=== PATIENT | female | born 1995 | race Two or more races ===

== ENCOUNTER 2018-06-09 19:57 | Emergency (ER) | payer OTHER ==
[~2018-06-09] VITALS: Ht 180.3 cm; Wt 56.7 kg
--- NOTE | 2018-06-09 20:21 | Emergency Room Report ---
History of Present Illness General Chief Complaint: Lower Back Pain or Injury Source: Patient Present Illness HPI Patient slipped and fell onto her back a week ago on a wet floor. She still is having back pain. She is sent here for evaluation. Her last period was a week ago and normal for her. She's not been taking medication. She's having difficulty walking and has some numbness in her knees. Pain rated 9/10, aching , not radiate down legs. No incontinence, fevers, blood thinners or oncologic problems. She denies prior back injuries of pain. No dysuria. No abdominal pain. Allergies: Coded Allergies: No Known Allergies (Unverified , 06/09/18) Patient History Past Medical History: see triage record Social History: Denies: smoking Social History Narrative food prep Last Menstrual Period: 06/01/2018 Now: No : 0 Para: 0 Reviewed Nursing Documentation: PMH: Agreed; PSxH: Agreed Nursing Documentation-PMH Past Medical History: No Stated History Review of Systems All Other Systems: negative except mentioned in HPI Physical Exam Vital Signs Date Time Temp Pulse Resp B/P (MAP) Pulse Ox O2 Delivery O2 Flow Rate FiO2 06/09/18 20:16 98.2 63 16 110/59 97 Room Air Sp02 EP Interpretation: reviewed, normal General Appearance: well appearing, no apparent distress Head: normocephalic, atraumatic Eyes: bilateral eye normal inspection, bilateral eye PERRL ENT: hearing grossly normal, normal voice, moist mucus membranes Neck: full range of motion, supple, no bony tend Respiratory: lungs clear, normal breath sounds, no respiratory distress, speaking full sentences Cardiovascular #1: regular rate, rhythm Cardiovascular #2: 2+ radial (L) Gastrointestinal: normal inspection Musculoskeletal: gait/station normal, normal range of motion, no calf tenderness, other - no step off, L lower back tenderness with some paraspinous muscle tightness, SLR neg Neurologic: alert, oriented x3, motor strength/tone normal, DTRs symmetric, sensory intact, normal gait, speech normal Psychiatric: mood/affect normal Skin: no rash Medical Decision Making Diagnostic Impression: Primary Impression: Low back pain Qualified Codes: M54.5 - Low back pain Additional Impression: Fall from slipping Qualified Codes: W01.0XXA - Fall on same level from slipping, tripping and stumbling without subsequent striking against object, initial encounter ER Course Patient presents with significant low back pain post fall 1 week ago. DDx: contusion, muscle spasm, sprain amongst others. No red flag signs or symptoms. Due to persistence of significant pain from distant injury, xrays indicated. Also patient will be given motrin. UA will be checked. Xrays essentially normal. Improved with treatment with decreased pain. Discussed treatment plan. Patient stable for outpatient observation and treatment. Other X-Ray Diagnostic Results Other X-Ray Diagnostic Results : X-Ray ordered: L/S spine # of Views/Limited Vs Complete: 3 View Indication: Pain Interpretation: no dislocation, no soft tissue swelling, no fractures, other - inc stool Impression: No acute disease Electronically Signed by: Electronically signed by Patricio Wilson MD Last Vital Signs Date Time Temp Pulse Resp B/P (MAP) Pulse Ox O2 Delivery O2 Flow Rate FiO2 06/09/18 23:25 98.2 69 16 112/66 99 Room Air Status: improved Disposition: HOME, SELF-CARE Condition: Improved Scripts Methocarbamol* (ROBAXIN*) 500 Mg Tablet 500 MG PO TID, #10 TAB 0 Refills Prov: Patricio Wilson MD 06/09/18 Ibuprofen* (MOTRIN*) 600 Mg Tablet 600 MG ORAL Q6H PRN for For Pain, #20 TAB Prov: Patricio Wilson MD 06/09/18 Patricio Wilson MD Jun 09, 2018 20:21
[2018-06-09 20:54] VITALS: BP 110/59
[2018-06-09 21:31] LABS: APPEARANCE,URINE CLEAR; BILIRUBIN, URINE NEGATIVE (NEGATIVE); COLOR,URINE PALE YELLOW; GLUCOSE, URINE (UA) NEGATIVE (NEGATIVE); KETONES,URINE NEGATIVE (NEGATIVE); LEUKOCYTE ESTERASE ,URINE 1+ (NEGATIVE); NITRITE,URINE NEGATIVE (NEGATIVE); PH,URINE 6.5 (4.5-8.0); PROTEIN,URINE NEGATIVE (NEGATIVE); UROBILINOGEN,URINE NORMAL MG/DL (0.0-1.0)
[2018-06-09 22:55] VITALS: BP 112/64
[2018-06-09] MEDS ORDERED: IBUPROFEN600 MG ORAL (23:16)
[2018-06-09] MEDS ORDERED: ROBAXIN500 MG PO (23:16)
[2018-06-09 23:25] VITALS: BP 112/66
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
== END 2018-06-09 23:25 | disposition home or self-care (01) ==
LOC: EMR 21:05
DX: M54.5 Low back pain (principal); R20.0 Anesthesia of skin; R26.2 Difficulty in walking, not elsewhere classified; W01.0XXA Fall on same level from slipping, tripping and stumbling without subsequent striking against object, initial encounter; Y92.69 Other specified industrial and construction area as the place of occurrence of the external cause
CPT/HCPCS: 72020; 81003; 81025; 99283